=== PATIENT | female | born 1975 | race Caucasian/White ===

== ENCOUNTER 2024-06-22 12:02 | Emergency (ER) | payer OTHER, SELFPAY ==
[2024-06-22 12:09] VITALS: BP 155/70
[2024-06-22 12:35] LABS: % Basophils 0.8 % (0-2); % Eosinophils 2.4 % (0-6); % Immature Granulocytes 0.3 % (0-0.5); % Lymphocytes 33.5 % (20.5-51.1); % Monocytes 7.7 % (1.7-9.3); % Neutrophils 55.3 % (42.2-75.2); Absolute Basophils 0.1 10^3/uL (0-0.2); Absolute Eosinophils 0.2 10^3/uL (0-0.7); Absolute Lymphocytes 2.7 10^3/uL (1.2-3.4); Absolute Monocytes 0.6 10^3/uL (0.1-0.6); Absolute Neutrophils 4.4 10^3/uL (1.4-6.5); Hematocrit 39.6 % (37.0-47.0); Hemoglobin 13.4 g/dL (12.0-16.0); Mean Corp Hgb Conc. 33.8 g/dL (33.0-37.0); Mean Corpuscular Hgb 30.9 pg (27.0-31.0); Mean Corpuscular Volume 91.2 fL (81.0-99.0); Nucleated Red Blood Cells % 0 %; Platelet Count 309 10^3/uL (130-400); Red Blood Cell Count 4.34 10^6/uL (4.20-5.40); Red Cell Dist. Width 13.4 % (11.5-14.5)
[2024-06-22 12:41] LABS: HCG, Urine Qualitative Screen Negative
[2024-06-22 12:50] LABS: Urine Albumin Negative (Neg - Trace); Urine Bilirubin Negative (Negative); Urine Character Clear (Clear); Urine Color Yellow; Urine Glucose Negative (Negative); Urine Ketone Negative (Negative); Urine Leukocyte Negative (Negative); Urine Nitrite Negative (Negative); Urine Occult Blood Negative (Negative); Urine Urobilinogen 2+ (Neg - 1+)
[2024-06-22 12:59] LABS: ALT (SGPT) 21 U/L (0-35); AST (SGOT) 25 U/L (14-36); Albumin 3.7 g/dl (3.5-5.0); Alkaline Phosphatase 63 U/L (38-126); Blood Urea Nitrogen 13 mg/dl (7-17); Calcium 8.8 mg/dl (8.4-10.2); Carbon Dioxide 28 mmol/L (22-30); Chloride 102 mmol/L (98-107); Glucose 89 mg/dl (70-99); Potassium 4.6 mmol/L (3.5-5.1); Sodium 137 mmol/L (135-145); Total Bilirubin 0.3 mg/dl (0.2-1.3); Total Protein 6.2 g/dl (6.3-8.2); eGFR > 60.00
[2024-06-22 13:39] VITALS: BP 145/90
--- NOTE | 2024-06-22 14:04 | ED.GENMED ---
History of Present Illness
General
Chief Complaint: Flank Pain
Source: patient
Exam Limitations: none
Time Seen by Provider: 06/22/24 13:34
Nursing documentation reviewed up to this point in time: agreed with
History of Present Illness
History of Present Illness:
Patient is a 48-year-old female presents to the emergency department with left back and flank pain that started 3 days ago. Patient saw her family doctor and was sent to the emergency department to be checked for kidney stones. Patient has no
history of kidney stones. Patient denies any hematuria, dysuria, urgency or frequency. Patient does have a history of ovarian cysts. 1 that ruptured and she bled internally. Patient denies any recent illnesses or injuries. Patient denies fever
or chills.
Past History
Past History
ED Past Medical History: Asthma and Other (fibromyalgia, ovarian cysts)
ED Past Surgical History: , Gynecological and Other (tubal ligation)
Social History
Tobacco: Non-smoker
Personal:
Living: with family
Review of Systems
Review of Systems
All Other Systems: ROS reviewed and negative except as documented in HPI and ROS
Constitutional: Reports no symptoms
Respiratory: Reports no symptoms
Cardiac: Reports no symptoms
ABD/GI: Reports abdominal pain; Denies nausea, vomiting, diarrhea or constipated
: Reports flank pain; Denies dysuria, frequency, urgency or bleeding
Musculoskeletal: Reports back pain
Skin: Reports no symptoms
Neurological: Reports no symptoms
Hematologic/Lymphatic: Reports no symptoms
Phy Exam
Physical Exam
Physical Exam:
Physical Exam
General: mild distress, alert and appropriate, well nourished, well hydrated
HENT: Normocephalic, supple with no lymphadenopathy, no thyromegaly
Eyes: Clear sclera, conjuctiva without injection
Heart: Regular rhythm and rate. No S3, S4. No murmur.
Lungs: No respiratory distress, no stridor, lung sounds clear and equal bilaterally
Abdomen: Soft, minimal lower abdominal tenderness bilaterally without guarding or rebound, no organomegaly, no CVA tenderness, BS good
Neuro: Alert and oriented x 3, CN II - XII intact, no motor focality, no cerebellar dysfunction
Skin: no rash
Psychiatric: well kept. interactive and cooperative
Extremities: No edema, cyanosis, tenderness
Course
Orders/Labs/Results
Orders:
Orders
06/22/24 12:12
Test Result ONCE
06/22/24 12:26
Complete Blood Count/With Diff Urgent
Comprehensive Metabolic Panel Urgent
, Urine Qualitative Screen [HCG, Urine Qualitative Screen] Urgent
Date Specimen was Collected: 06/22/24
Time Specimen was Collected: 12:12
Urinalysis Reflex To Culture Urgent
Date Specimen was Collected: 06/22/24
Time Specimen was Collected: 12:12
06/22/24 13:56
CT Abd/pel Without Iv Or Oral Urgent
Comment:
Reason For Exam: left flank pain
0.9% Sodium Chloride 1000 ml [Nss] 1,000 ml IV BOLUS
Ketorolac [Toradol] 15 mg IV NOW STA
06/22/24 15:50
HYDROmorphone [Dilaudid] 0.5 mg IV NOW STA
Ondansetron Injectable [Zofran] 4 mg IV NOW STA
Abnormal Lab Results
06/22/24
12:26
Total Protein 6.2 L g/dl
(6.3-8.2)
Urine Urobilinogen 2+ A
(Neg - 1+)
06/22/24 12:26
06/22/24 12:26
Vital Signs
Initial and Last Documented VS:
Initial Vital Signs
Temp Pulse Resp BP Pulse Ox
97.8 F 70 18 155/70 100
06/22/24 12:09 06/22/24 12:06/22/24 12:06/22/24 12:06/22/24 12:09
Last Documented Vital Signs
Temp Pulse Resp BP Pulse Ox
97.8 F 73 18 135/90 100
06/22/24 12:09 06/22/24 16:00 06/22/24 16:00 06/22/24 16:00 06/22/24 16:00
*Radiology
Radiology exam reviewed: radiology read reviewed (neg)
*Pulse Oximetry
Patient hypoxic: no
*EKG
Interpreted by ED Provider?: NA
*Inspector [employer] Interpretation
Rate: Inspector [employer]- N/A
*Critical Care Note
Total Time (30-74mins, 75-104mins- exclusive of procedures): Not Applicable
Update Note
Update Note:
Patient does have episodes of bloating. After much discussion we will have the patient referred to gastroenterology. Start the patient on Bentyl with Metamucil and analgesia. Believe the patient goes back and forth between diarrhea and mild
constipation. It does sound like IBS. However the patient gets bloated and certain foods bother her. Will give her a gluten-free diet.
ED Attending Note
-
Portions of this chart may have been created with voice recognition software.� Occasional wrong word or��sound alike� substitutions may have occurred due to the inherent limitations of voice recognition software.
Discharge Plan
Departure
Patient Disposition: Home (Routine Discharge)
Date of Disposition: 06/22/24
Time of Disposition: 17:02
Patient with high blood pressure during this ER visit?: No
Condition: Fair
Covid-19: Not Applicable
Discharge Problem:
Nonspecific abdominal pain
Instructions: Gluten-free diet, Abdominal Pain, Adult ED
Prescriptions:
New
oxycodone 5 mg tablet
5 mg PO Q4H PRN (Reason: Pain) Qty: 12 0RF
dicyclomine 10 mg capsule
10 mg PO QID PRN (Reason: abdominal pain) Qty: 30 0RF
No Action
albuterol sulfate [Proventil HFA] 90 MCG/PUFF HFA aerosol inhaler
1 puff inhalation PRN PRN (Reason: asthma)
duloxetine 60 MG capsule,delayed release(DR/EC)
60 mg PO DAILY
topiramate 25 MG tablet
50 mg PO DAILY PRN (Reason: headache)
Patient Comments:
unsure of dose
oxycodone-acetaminophen 5 MG/325 MG tablet
1 tab PO Q4HPRN PRN (Reason: myalgias)
sumatriptan succinate 50 MG tablet
50 mg PO DAILY PRN (Reason: migraine)
lorazepam [Ativan] 2 MG tablet
1 mg PO DAILYPRN PRN (Reason: anxiety)
Lactobacillus acidophilus [Probiotic] 1 EACH capsule
1 ea PO DAILY
pantoprazole [Protonix] 20 MG tablet,delayed release (DR/EC)
20 mg PO BID Qty: 30 0RF
Referrals:
Aniceto Carmen MD [Family Provider] - Follow up in 5-7 days
Breana Frederick MD [Active] - Call in 1-3 days for appt
Activity Restrictions/Additional Instructions:
Use acetaminophen 650 mg to 1000 mg every 6 hours for mild to moderate pain. For any pain greater than that use the oxycodone. In addition use Metamucil daily. Any issues please return or follow-up with your family doctor.
Interventions
Interventions:
*Risk Screen - Suicide Last Done: 06/22/24 12:09
*General Assessment Last Done: 06/22/24 12:09
*Neglect/Abuse Screening Last Done: 06/22/24 12:09
*ED COVID-19 Vaccine History Last Done: 06/22/24 13:37
FH-Docdau-[id number] Assessment Last Done: 06/22/24 13:37
ED-Female Genitourinary Assessment Last Done: 06/22/24 13:37
Discharge Date and Time
Print Language: FAROESE
[2024-06-22] MEDS: TORADOL 15 MG IV (14:25)
[2024-06-22] MEDS: NSS 1000 IV (14:26)
[2024-06-22] MEDS: DILAUDID 0.5 MG IV (15:56)
[2024-06-22] MEDS: ZOFRAN 4 MG IV (15:58)
[2024-06-22 16:00] VITALS: BP 135/90
== END 2024-06-22 17:37 | disposition home or self-care (01) ==
LOC: EMR 12:02
PROVIDERS: Emergency Medicine; EMERGENCY PHYSICIAN Emergency Medicine; FAMILY PHYSICIAN Family Medicine
DX: R10.9 Unspecified abdominal pain (principal)
CPT/HCPCS: 99284; 96374; 96375 ×3; 96361; 74176; 80053; 81003; 81025; 85025